=== PATIENT | female | born 2000 | race Caucasian/White ===

== ENCOUNTER 2022-05-19 06:09 | Day surgery (SDC) | payer OTHER, SELFPAY ==
[2022-05-19] VITALS (8 sets, daily range): BP systolic 121–141; BP diastolic 71–90; PULSE 74–101; RESP 16; TEMP 36.6–36.8; O2SAT 96–100; BMI 22.1
--- NOTE | 2022-05-19 06:19 | SUR.PREOP ---
HOME COVID TEST NEGATIVE DONE 05/19/22.
[2022-05-19] MEDS: LACTATED RINGERS 1000 ML 1,000 ML 100 ML IV (06:40)
[2022-05-19] MEDS: SODIUM CHLORIDE 0.9 % (FLUSH) 10 ML SYRINGE IVF (06:40)
[2022-05-19] MEDS: MIDAZOLAM HCL 1 MG/ML inj IVP (07:01)
[2022-05-19] MEDS: fentaNYL 100 MCG/2 ML inj IVP (07:01)
--- NOTE | 2022-05-19 07:05 | SUR.PREOP ---
TIME?OUT:?0700 PT/RN/MDA?VERIFICATION?OF?SURGICAL?SITE,?PROCEDURE,?AND?CONSENT OBTAINED?PRIOR?TO?INVASIVE?PROCEDURE.
[2022-05-19 07:28] LABS: Ur HCG Qualitative* Negative (Negative)
[2022-05-19] MEDS: CEFAZOLIN 2 GM in 0.9 % SODIUM CHLORIDE Mini-bag 100 ML IVPB (07:38)
--- NOTE | 2022-05-19 08:05 | PM.ORPRC ---
Procedure Note Date of procedure: 05/19/22 Procedure: PREOPERATIVE DIAGNOSIS: 1. Right dorsal wrist benign cyst (suspect ganglion cyst) POSTOPERATIVE DIAGNOSIS: 1. Right dorsal wrist benign cyst (suspect ganglion cyst) PROCEDURE: 1. Right dorsal wrist benign cyst open excision SURGEON: Rodrigue Clay MD. [employer] CONSULTANT: ALOK Wang - Of note, an assistant district attorney was critical for this case to aid in patient positioning, tissue retraction, limb manipulation/positioning, and closure. ANESTHESIA: Regional block plus MAC IMPLANTS: None TOURNIQUET: 14 minutes at 225 torr COMPLICATIONS: None evident INDICATIONS: The patient is a pleasant 21-year-old female who has experienced right dorsal wrist growth/cyst formation over last couple months. This is starting to enlarge the point that is catching on objects when she puts her hand in her pocket or when she is in a wrist extended posture. The pain has progressively gotten worse. Nonoperative management has been tried but unsuccessful. Given the failure of nonoperative management, and how this affects daily life, surgery was recommended. DESCRIPTION OF PROCEDURE: Following a thorough discussion of risks, benefits, and alternatives consent was obtained and the operative extremity was marked. The patient was brought to the operating room and placed supine on the operating table. No antibiotics were administered as this was planned to be a local case only. Proper time-out was performed identifying proper patient, site, and procedure. The operative extremity was prepped and draped in the appropriate sterile fashion using ChloraPrep. The limb was exsanguinated and the tourniquet inflated. A longitudinal incision was made overlying the dorsal aspect of the right wrist. Sharp incision through skin and blunt dissection through subcutaneous tissue allowed us to protect crossing neurovascular structures. The cyst was immediately encountered and mobilized from the surrounding adhesed tissue. The stalk was identified and tracked deep to the dorsal carpus. The cyst measured 25 x 10 mm with 25 being its length aiming deep towards the carpus itself. Following complete cyst excision, it was sent for permanent pathology. At this stage, the tourniquet was deflated and hemostasis achieved. Closure was performed with 4-0 Monocryl. Soft dressings were applied, and the patient was awoken/transferred to the recovery room in stable condition. PLAN: 1. Encourage elevation of the operative extremity. 2. Range of motion of the operative extremity/digits as tolerated. 3. Ibuprofen, acetaminophen and/or Percocet as needed for pain. 4. Follow up with PA visit in 12-16 days for wound check and suture removal.
--- NOTE | 2022-05-19 08:23 | W.ANESCHARGE ---
Anesthesia Charges Start Date/Time Anesthesia Start Date: 05/19/22 Anesthesia Start Time: 07:30 Stop Date/Time Anesthesia Stop Date: 05/19/22 Anesthesia Stop Time: 08:21 Summary Emergency: No
--- NOTE | 2022-05-19 08:43 | W.ANESCHARGE ---
Anesthesia Charges Start Date/Time Anesthesia Start Date: 05/19/22 Anesthesia Start Time: 07:30 Stop Date/Time Anesthesia Stop Date: 05/19/22 Anesthesia Stop Time: 08:21 Summary Emergency: No
--- NOTE | 2022-05-19 08:44 | W.PM.NB ---
Nerve Block Nerve Block Time Seen by Provider: 07:05 Date Seen: 05/19/22 Type of block requested by surgeon for post-operative analgesia: axillary Side: right Time out performed: Yes Verification of patient name: Yes Verification of date of : Yes Site marking: site marked Name of person performing procedure: Amaury Continuous monitoring Was continuous monitoring of O2 sat, B/P, groundwater monitoring technician, recorded every 15 minutes?: Yes Procedure Checklist: sterile prep, needles and gloves Ultrasound guided. Images saved: Yes Medications given in 5ml increments after negative aspiration: Ropivicaine %: 0.5 mL: 30 Needle gauge: 22 Patient tolerated procedure well: Yes Additional comments: Needle noted adjacent to nerve Block Charges Block Charge (with Pro Fee): Brachial Plexus Use of Ultrasound Machine for Block: Yes- US Guidance/pain block
== END 2022-05-19 09:00 | disposition home or self-care (01) ==
PROVIDERS: Anesthesiology; Visit Provider Orthopaedic Surgery Sports Medicine
PROC: (CPT 25111; principal; 2022-05-19 07:30)
DX: M67.431 Ganglion, right wrist (principal)
CPT/HCPCS: 25111; 01810; 64415; 76942; 81025; 88304; J0690; J1100; J2250; J2405; J2704; J2795; J3010; J7120

== ENCOUNTER 2025-05-22 15:19 | Outpatient (CLI) | payer OTHER, SELFPAY | END 2025-05-22 15:20 | disposition home or self-care (01) | LOC: NFLDREF 05-26 08:38 | PROVIDERS: Visit Provider Physician Assistant | DX: N39.0 Urinary tract infection, site not specified (principal); R30.0 Dysuria | CPT/HCPCS: 87086 ==